=== PATIENT | female | born 2000 | race African-American/Black ===

== ENCOUNTER 2019-10-02 21:27 | Emergency (ER) | payer SELFPAY ==
[~2019-10-02] VITALS: Ht 177.8 cm; Wt 164.9 kg
[2019-10-02] MEDS ORDERED: ONDANSETRON PF 4 MG/2 ML VIAL. IVP ONE (23:30)
[2019-10-02] MEDS ORDERED: IV NORMAL SALINE 1,000ML 1,000 ML IV ONE (23:30)
--- NOTE | 2019-10-02 23:30 | PHYS DOC ---
Adult General Chief Complaint Chief Complaint: NAUSEA/VOMITING/DIARRHEA HPI HPI 18 yo female presents with one-day history of nausea, diffuse abdominal pain, general body aches. She has had a very intermittent cough. Her primary concern is the nausea and fatigue. No she's had a fever, but she has had chills. She has no other complaints at this time Review of Systems Review of Systems Constitutional: Chills[] Eyes: Denies change in visual acuity, redness, or eye pain [] HENT: Denies nasal congestion or sore throat [] Respiratory: Cough without shortness of breath [] Cardiovascular: No additional information not addressed in HPI [] GI: Generalized abdominal pain, nausea. Denies vomiting, bloody stools or diarrhea [] : Denies dysuria or hematuria [] Musculoskeletal: Denies back pain or joint pain [] Integument: Denies rash or skin lesions [] Neurologic: Headache. Denies focal weakness or sensory changes [] Endocrine: Denies polyuria or polydipsia [] All other systems were reviewed and found to be within normal limits, except as documented in this note. Current Medications Current Medications Current Medications Medications (Trade) Dose Ordered Sig/Katherine Start Time Stop Time Status Last Admin Dose Admin Ondansetron HCl (Zofran) 4 mg 1X ONCE 10/02/19 23:30 10/02/19 23:31 UNV Sodium Chloride 1,000 ml @ 1,000 mls/hr 1X ONCE 10/02/19 23:30 10/03/19 00:29 UNV Physical Exam Physical Exam Constitutional: Well developed, well nourished, no acute distress, non-toxic appearance. [] HENT: Normocephalic, atraumatic, bilateral external ears normal, oropharynx moist, no oral exudates, nose normal. [] Eyes: PERRLA, EOMI, conjunctiva normal, no discharge. [] Neck: Normal range of motion, no tenderness, supple, no stridor. [] Cardiovascular:Heart rate regular rhythm, no murmur [] Lungs & Thorax: Bilateral breath sounds clear to auscultation [] Abdomen: Bowel sounds normal, soft, no tenderness, no masses, no pulsatile jess s. [] Skin: Warm, dry, no erythema, no rash. [] Back: No tenderness, no CVA tenderness. [] Extremities: No tenderness, no cyanosis, no clubbing, ROM intact, no edema. [] Neurologic: Alert and oriented X 3, normal motor function, normal sensory function, no focal deficits noted. [] Psychologic: Affect normal, judgement normal, mood normal. [] EKG EKG [] Radiology/Procedures Radiology/Procedures [] Course & Med Decision Making Course & Med Decision Making Pertinent Labs and Imaging studies reviewed. (See chart for details) The patient's labs are unremarkable. For her headache and given her 10 mg Reglan, 25 mg of Benadryl, 30 mg of Toradol, and a liter of normal saline. The patient was initially given 4 mg of Zofran for her nausea. She is feeling much better at this time. I believe she likely just has a viral illness. She is stable for discharge at this time. [] Dragon Disclaimer Dragon Disclaimer This electronic medical record was generated, in whole or in part, using a voice recognition dictation system. Departure Departure: Impression: Primary Impression: Nausea & vomiting Additional Impression: Viral gastritis Disposition: 01 HOME/RESIDENCE PRIOR TO ADM Condition: STABLE Referrals: PCP,HEENA (PCP) Patient Instructions: Nausea and Vomiting, [id number] Problem Qualifiers Primary Impression: Nausea & vomiting Vomiting type: unspecified Vomiting Intractability: non-intractable Qualified Codes: R11.2 - Nausea with vomiting, unspecified SHREYA POWERS DO Oct 02, 2019 23:30
[2019-10-02] MEDS ORDERED: diphenhydrAMINE 50 MG/ML VIAL IVP ONE (23:45)
[2019-10-02] MEDS ORDERED: KETOROLAC 30 MG/ML VIAL. IVP ONE (23:45)
[2019-10-02] MEDS ORDERED: METOCLOPRAMIDE HCL 10 MG/2 ML VIAL. IVP ONE (23:45)
[2019-10-03 00:45] LABS: CALCIUM 8.9 mg/dL (8.5-10.1); CREATININE 0.6 mg/dL (0.6-1.0); GFR 155.8; POTASSIUM 4.2 mmol/L (3.5-5.1)
[2019-10-03 00:47] LABS: BASO # 0.1 x10^3/uL (0.0-0.2); BASO % 1 % (0-3); EOS # 0.1 x10^3/uL (0.0-0.7); EOS % 1 % (0-3); HEMATOCRIT 39.7 % (36.0-47.0); HEMOGLOBIN 12.9 g/dL (12.0-15.5); LYMPH # 2.3 x10^3/uL (1.0-4.8); LYMPH % 23 % (24-48); MEAN CORPUSCULAR HEMOGLOBIN 27 pg (25-35); MEAN CORPUSCULAR HGB CONC 32 g/dL (31-37); MEAN CORPUSCULAR VOLUME 83 fL (79-100); MONO # 0.7 x10^3/uL (0.0-1.1); MONO % 7 % (0-9); NEUT # 6.6 x10^3uL (1.8-7.7); NEUT % 68 % (31-73); PLATELET COUNT 360 x10^3/uL (140-400); RED BLOOD COUNT 4.81 x10^6/uL (3.50-5.40); WHITE BLOOD COUNT 9.8 x10^3/uL (4.0-11.0)
[2019-10-03 00:51] LABS: ALBUMIN 3.2 g/dL (3.4-5.0); ALBUMIN/GLOBULIN RATIO 0.7 (1.0-1.7); TOTAL BILIRUBIN 0.1 mg/dL (0.2-1.0); TOTAL PROTEIN 7.5 g/dL (6.4-8.2)
[2019-10-03 01:05] LABS: BACTERIA,URINE FEW /HPF (0-FEW); BILIRUBIN,URINE NEG (NEG); CLARITY,URINE CLEAR; COLOR,URINE STRAW; GLUCOSE,URINE NEG (NEG); NITRITE,URINE NEG (NEG); RBC,URINE 0 /HPF (0-2); SQUAMOUS EPITHELIAL CELL,UR FEW /LPF; UROBILINOGEN,URINE 0.2 mg/dL (0.2 mg/dL); WBC,URINE 0 /HPF (0-4)
[2019-10-03 01:25] VITALS: BP 111/66
[2019-10-03 01:25] LABS: U PREG PATIENT NEGATIVE (NEG)
== END 2019-10-03 01:25 | disposition home or self-care (01) ==
LOC: ER 21:27
DX: A08.4 Viral intestinal infection, unspecified (principal); R11.2 Nausea with vomiting, unspecified; R51 Headache
CPT/HCPCS: 36415; 80053; 81001; 81025; 85025; 96361; 96374; 96375; 99284; J1200; J1885; J2405; J2765; J7030

== ENCOUNTER 2020-03-11 18:03 | Emergency (ER) | payer OTHER ==
[~2020-03-11] VITALS: Ht 177.8 cm; Wt 162.6 kg
[2020-03-11] MEDS ORDERED: IV RINGERS SOLUTION,LACTATED 1,000 ML IV SCH (18:24)
--- NOTE | 2020-03-11 18:24 | PHYS DOC ---
Past History Past Medical History: No Pertinent History, Heart Disease Past Surgical History: No Surgical History Alcohol Use: None Drug Use: None General Adult EDM: Chief Complaint: ABDOMINAL PAIN HPI: HPI: "... I ve been sick since ... Maybe diarrhea 3 x. day.. really nauseated.. feel like I need to vomit... My period is 2 weeks late... I hurt right up here in my Epigastric area... 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 No history of bad food and intake. No history of trauma. No history of ill contacts. No immunosuppression. 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 No recent travel outside [facility]. No history immunosuppression. Patient states she is late on her period for approximately 6 weeks. Review of Systems: Review of Systems: Constitutional: Denies fever or chills Eyes: Denies change in visual acuity HENT: Denies nasal congestion or sore throat Respiratory: Denies cough or shortness of breath Cardiovascular: Denies chest pain or edema GI: Complaints abdominal pain, nausea, and diarrhea : Denies dysuria Musculoskeletal: Denies back pain or joint pain Integument: Denies rash Neurologic: Denies headache, focal weakness or sensory changes Endocrine: Denies polyuria or polydipsia Lymphatic: Denies swollen glands Psychiatric: Denies depression or anxiety Heart Score: HEART Score for Chest Pain: HEART Score for Chest Pain Response (Comments) Value History Slighlty/Non-Suspicious 0 ECG Normal 0 Age < 45 0 Risk Factors No Risk Factors 0 Troponin < Normal Limit 0 Total 0 Risk Factors: Risk Factors: DM, Current or recent (<one month) smoker, HTN, HLP, family history of CAD, obesity. Risk Scores: Score 0 - 3: 2.5% MACE over next 6 weeks - Discharge Home Score 4 - 6: 20.3% MACE over next 6 weeks - Admit for Clinical Observation Score 7 - 10: 72.7% MACE over next 6 weeks - Early Invasive Strategies Family History: Family History: Noncontributory Current Medications: Current Meds: See nursing for home meds Allergies: Allergies: Allergies Coded Allergies Type Severity Reaction Last Updated Verified No Known Drug Allergies 10/03/19 No Physical Exam: PE: Constitutional: Moderate acute distress, non-toxic appearance. [] HENT: Normocephalic, atraumatic, bilateral external ears normal, oropharynx moist, no oral exudates, nose normal. [] Eyes: PERRLA, EOMI, conjunctiva normal, no discharge. [] Neck: Normal range of motion, no tenderness, supple, no stridor. [] Cardiovascular: Tachycardia heart rate regular rhythm, no murmur [] Lungs & Thorax: Bilateral breath sounds clear to auscultation [] Abdomen: Bowel sounds hyperactive, soft, epigastric and right upper quadrant te nderness, no masses, no pulsatile masses. Morbidly obese. Skin: Warm, dry, no erythema, no rash. [] Back: No tenderness, no CVA tenderness. [] Extremities: No tenderness, no cyanosis, no clubbing, ROM intact, ankle edema. [] No cording appreciated Neurologic: Alert and oriented X 3, normal motor function, normal sensory function, no focal deficits noted. [] Psychologic: Affect anxious,, judgement normal, mood normal. [] EKG: EKG: My interpretation of EKG shows a sinus rhythm at 93 bpm. No findings of acute STEMI with contralateral changes. [] Radiology/Procedures: Radiology/Procedures: [][place] [id number] IMAGING REPORT Signed PATIENT: TEJ DESAI ACCOUNT: [id number] : 12/02/1974 LOCATION: ER AGE: 45 SEX: F EXAM STATUS: PRE ER ORD. PHYSICIAN: DEMETRIUS BUI MD REASON: cough PROCEDURE: CHEST PA & LATERAL EXAM: AP View of the chest DATE: 03/12/2020 4:17 AM INDICATION: Cough COMPARISON: 02/11/2020 FINDINGS: The heart is not enlarged. Mediastinal and hilar contours are stable. Patchy right lung base parenchymal opacities may represent atelectasis or developing consolidation, more prominent than 02/11/2020. No pleural effusion or pneumothorax. IMPRESSION: Patchy right lung base parenchymal opacities may represent atelectasis or developing consolidation, more prominent than 02/11/2020. Electronically signed by: Bryan Limon MD (03/12/2020 5:09 AM) [facility] DICTATED AND SIGNED BY: BRYAN LIMON MD DATE: 03/12/20 0509 CC: DEMETRIUS BUI MD; PCP,NO ~ Course & Med Decision Making: Course & Med Decision Making Pertinent Labs and Imaging studies reviewed. (See chart for details) Patient follow-up labs with primary care. Patient push fluids. Patient take a vitamin. Patient follow-up OB. Patient recommended not to smoke or use marijuana. Patient be on a clear fluid diet for the next 24 hours. Avoid solids and milks to allow bowel rest. Patient push clear fluids and fruit juices. Must follow-up. Impression- 1. Intrauterine approximately 6 weeks 2. Complaints of nausea 3. Blood type is O+ 4. Hemoglobin 12.7 5. Beta-hCG is 15,774 6. Tobacco and marijuana use 7. Morbid obesity 8. History of diarrhea [] Dragon Disclaimer: Dragon Disclaimer: This electronic medical record was generated, in whole or in part, using a voice recognition dictation system. Departure Departure: Disposition: 01 HOME/RESIDENCE PRIOR TO ADM Condition: STABLE Referrals: PCP,HEENA (PCP) Justification of Admission: Justification of Admission: Justification of Admission Dx: N/A Dragon Disclaimer This chart was dictated in whole or in part using Voice Recognition software in a busy, high-work load, and often noisy Emergency Department environment. It may contain unintended and wholly unrecognized errors or omissions. DEMETRIUS BUI MD Mar 11, 2020 18:24
[2020-03-11] MEDS ORDERED: ONDANSETRON PF 4 MG/2 ML VIAL. IVP ONE (18:30)
[2020-03-11] MEDS ORDERED: FAMOTIDINE 20 MG/2 ML VIAL IVP ONE (18:30)
[2020-03-11 19:51] LABS: BASO % 0 % (0-3); EOS # 0.1 x10^3/uL (0.0-0.7); EOS % 1 % (0-3); HEMATOCRIT 38.7 % (36.0-47.0); HEMOGLOBIN 12.7 g/dL (12.0-15.5); LYMPH # 2.6 x10^3/uL (1.0-4.8); LYMPH % 26 % (24-48); MEAN CORPUSCULAR HEMOGLOBIN 28 pg (25-35); MEAN CORPUSCULAR HGB CONC 33 g/dL (31-37); MEAN CORPUSCULAR VOLUME 84 fL (79-100); MONO # 0.8 x10^3/uL (0.0-1.1); MONO % 8 % (0-9); NEUT # 6.7 x10^3uL (1.8-7.7); NEUT % 66 % (31-73); PLATELET COUNT 344 x10^3/uL (140-400); RED BLOOD COUNT 4.62 x10^6/uL (3.50-5.40); RED CELL DISTRIBUTION WIDTH 15.5 % (11.5-14.5); WHITE BLOOD COUNT 10.1 x10^3/uL (4.0-11.0)
[2020-03-11 19:52] LABS: CALCIUM 8.8 mg/dL (8.5-10.1); CREATININE 0.8 mg/dL (0.6-1.0); GFR 110.7; POTASSIUM 3.6 mmol/L (3.5-5.1)
[2020-03-11 19:59] LABS: DIRECT BILIRUBIN 0.1 mg/dL (0.0-0.2); TOTAL BILIRUBIN 0.3 mg/dL (0.2-1.0); TOTAL PROTEIN 7.2 g/dL (6.4-8.2)
[2020-03-11 20:41] LABS: BACTERIA,URINE FEW /HPF (0-FEW); BARBITURATES NEG (NEG); BENZODIAZEPINES NEG (NEG); BILIRUBIN,URINE NEG (NEG); CANNABINOIDS POS (NEG); CLARITY,URINE HAZY; COCAINE NEG (NEG); COLOR,URINE YELLOW; GLUCOSE,URINE NEG (NEG); METHADONE NEG (NEG); NITRITE,URINE NEG (NEG); OPIATES NEG (NEG); PHENCYCLIDINE NEG (NEG); RBC,URINE 0 /HPF (0-2); SQUAMOUS EPITHELIAL CELL,UR MOD /LPF; UROBILINOGEN,URINE 0.2 mg/dL (0.2 mg/dL)
[2020-03-11 20:43] LABS: AMPHETAMINE/METHAMPHETAMINE NEG (NEG)
[2020-03-11 23:00] VITALS: BP 145/80
--- NOTE | 2020-03-11 23:10 | RAD ---
CLINICAL HISTORY: Reason: pain, nausea / Spl. Instructions: / History: COMPARISON: None available. TECHNIQUE: Endovaginal sonography was performed FINDINGS: An intrauterine gestational sac is present. A yolk sac is identified. Equivocal pole with cardiac activity is identified, heart rate measures approximately 93 beats per minute. There is no subchorionic fluid collection. Based on a crown rump length averaging 0.34 cm, the estimated gestational age is 6 weeks, 0 days. Estimated date of delivery is 11/04/2020. The ovaries are not visualized. There is small volume pelvic free fluid. IMPRESSION: 1. A gestational sac with yolk sac is identified. Equivocal pole is identified with heart rate of 93 bpm, bradycardia. Recommend short normal follow-up ultrasound in one week and follow-up serial hCG. Estimated gestational age is 6 weeks 0 days with an estimated date of delivery 11/04/2020. Electronically signed by: Bryan Limon MD (03/11/2020 11:07 PM) [facility]
--- NOTE | 2020-03-14 07:14 | EKG ---
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
== END 2020-03-11 23:30 | disposition home or self-care (01) ==
LOC: ER 18:03
DX: O26.891 Other specified pregnancy related conditions, first trimester (principal); R11.0 Nausea; R10.13 Epigastric pain; R19.7 Diarrhea, unspecified; O99.321 Drug use complicating pregnancy, first trimester; F12.10 Cannabis abuse, uncomplicated; O99.331 Smoking (tobacco) complicating pregnancy, first trimester; O99.211 Obesity complicating pregnancy, first trimester; E66.01 Morbid (severe) obesity due to excess calories; Z3A.01 Less than 8 weeks gestation of pregnancy
CPT/HCPCS: 36415; 76817; 80048; 80076; 80307; 81001; 81025; 82550; 83690; 84484; 84702; 85025; 85610; 86900; 86901; 93005; 96361; 96374; 96375; 99285; J2405; J3490; J7120

== ENCOUNTER → 2021-11-10 | Outpatient (CLI) | payer OTHER ==
--- NOTE | 2021-11-10 13:18 | RAD ---
EXAMINATION: US OB <14 WKS, 11/10/2021 11:25 AM CLINICAL INDICATION: Supervision of high risk TECHNIQUE: Grayscale, color and spectral Doppler ultrasound images of the pelvis via first trimester OB protocol COMPARISON: None. FINDINGS: The uterus measures 13.5 x 8.7 x 7.1 cm. There is an intrauterine with crown-rump length of 8.08 cm, consistent with gestational age 14 weeks 0 days. heart rate is 163 bpm. Placenta is p osterior. There is placenta previa. The right ovary measures 2.8 x 2.2 x 1.9 cm. The left ovary measures 3.6 x 2.4 x 2.2 cm. Normal ovari an blood flow bilaterally. No adnexal mass or free fluid. IMPRESSION: 1. Single living intrauterine with gestational age by ultrasound 14 weeks 0 days. hea rt rate is 163 bpm. 2. Placenta previa. Recommend attention on follow-up ultrasound. Electronically signed by: Diana Maria MD (11/10/2021 1:16 PM) [facility]
== END ==
LOC: US 11:21
PROVIDERS: ATTEND Obstetrics & Gynecology
DX: O09.72 Supervision of high risk pregnancy due to social problems, second trimester (principal); O44.02 Complete placenta previa NOS or without hemorrhage, second trimester; Z3A.14 14 weeks gestation of pregnancy
CPT/HCPCS: 76801

== ENCOUNTER → 2021-12-26 | Outpatient (CLI) | payer OTHER ==
--- NOTE | 2021-12-27 10:23 | RAD ---
US OB >14 WEEKS History: Reason: 2ND TRIMESTER SCAN / Spl. Instructions: / History: Comparison: November 10, 2021 Technique: Multiple grayscale images, color Doppler, and M-mode images of the uterus are obtained. Findings: There is a single intrauterine gestation in variable presentation. The placenta is posterior in locat ion without evidence of placenta previa. The amount of amniotic fluid appears appropriate. Amniotic fluid index is 19.4 cm. Cervical length is 4 cm. Biometrical data: BPD = 4.7 cm for 20 weeks 2 days. HC = 18 cm for 20 weeks 3 days. AC = 15.7 cm for 20 weeks 6 days. FL = 3.6 cm for 21 weeks 4 days. HC/AC ratio = 1.1. Overall, the estimated sonographic gestational age is 20 weeks 6 days for an estimated date of delive ry of May 09, 2022. The estimated date of delivery provided by the last menstrual period is May 14, 2022. Estimated weight is 14 ounces A 4 chamber heart is identified with positive cardiac activity. The estimated heart rate is 155 beats per minute. Bilateral upper and lower extremities are identified. There is a three-vessel cord with cord insertion visualized. stomach and urinary bladder are identified. Degraded evaluation of the kidneys. The spine and brain are unremarkable. No gross anatomic abnormalities are identified. Impression: 1. Single intrauterine gestation with estimated gestational age 20 weeks 6 days. Electronically signed by: Basilio Sethi DO (12/27/2021 10:21 AM) [id number]
== END ==
LOC: US 14:27
PROVIDERS: ATTEND Obstetrics & Gynecology
DX: Z34.92 Encounter for supervision of normal pregnancy, unspecified, second trimester (principal); Z3A.20 20 weeks gestation of pregnancy
CPT/HCPCS: 76805